=== PATIENT | male | born 1980 | race Hispanic/Latino ===

== ENCOUNTER 2021-02-12 19:35 | Emergency (ER) | payer OTHER ==
[~2021-02-12] VITALS: Ht 170.2 cm; Wt 84.8 kg
[2021-02-12] MEDS ORDERED: KEFLEX500 MG PO (20:05)
[2021-02-12] MEDS ORDERED: BACTRIM DS1 TAB PO (20:05)
[2021-02-12 20:15] VITALS: BP 154/88
== END 2021-02-12 20:15 | disposition home or self-care (01) | DRG 603 ==
LOC: ED 19:35
DX: L02.413 Cutaneous abscess of right upper limb (principal); L03.113 Cellulitis of right upper limb; B95.61 Methicillin susceptible Staphylococcus aureus infection as the cause of diseases classified elsewhere; S50.861A Insect bite (nonvenomous) of right forearm, initial encounter; W57.XXXA Bitten or stung by nonvenomous insect and other nonvenomous arthropods, initial encounter; Y93.89 Activity, other specified; Y92.74 Orchard as the place of occurrence of the external cause; Y99.0 Civilian activity done for income or pay

== ENCOUNTER 2021-02-14 20:10 | Emergency (ER) | payer OTHER ==
[~2021-02-14] VITALS: Ht 170.2 cm; Wt 80.0 kg
[~2021-02-14 20:10] MED LIST: BACTRIM DS1 TAB PO; KEFLEX500 MG PO
[2021-02-14 21:00] VITALS: BP 155/98
== END 2021-02-14 21:00 | disposition home or self-care (01) | DRG 603 ==
LOC: ED 20:10
DX: L03.113 Cellulitis of right upper limb (principal); L02.413 Cutaneous abscess of right upper limb

== ENCOUNTER 2021-07-27 19:01 | Emergency (ER) | payer SELFPAY ==
[~2021-07-27] VITALS: Ht 162.6 cm; Wt 68.0 kg
[2021-07-27 19:49] LABS: HEMATOCRIT 46.4 % (39.0-50.0); HEMOGLOBIN 15.9 g/dl (14.0-18.0); IMMATURE GRANULOCYTES 0.1 % (0.0-5.0); MEAN CELL VOLUME 89.9 fL CALC (80.0-100.0); MEAN CORPUSCULAR HGB 30.8 pG CALC (26.0-32.0); MEAN CORPUSCULAR HGB CONC 34.3 g/dL CAL (32.0-36.0); NEUT# 5.17 thou/uL (1.82-7.42); RED BLOOD COUNT 5.16 mill/uL (4.70-6.10)
[2021-07-27 20:12] LABS: ALBUMIN 4.4 g/dL (3.2-5.0); ALKALINE PHOSPHATASE 102 u/l (38-126); ANION GAP 11 (6-22 (CALC)); BILIRUBIN, TOTAL 0.5 mg/dL (0.0-1.4); BUN 10 mg/dL (9-20); BUN/CREATININE RATIO 14 (12-20 (CALC)); CARBON DIOXIDE 31 mmol/l (22-30); CHLORIDE 101 mmol/l (95-108); CREATININE 0.8 mg/dL (0.7-1.3); ETHYL ALCOHOL 0 mg/dl (0-30); GFR > 60 ML/MIN (>=60 (CALC)); GFR FOR AFR.AMER. > 60 ML/MIN (>=60 (CALC)); POTASSIUM 4.3 mmol/l (3.5-5.1); SGOT/AST 45 u/l (17-59); SODIUM 139 mmol/l (137-146); TOTAL PROTEIN 7.6 g/dL (6.3-8.2)
[2021-07-27] MEDS ORDERED: TORADOL PO (20:46)
[2021-07-27 20:55] VITALS: BP 170/94
== END 2021-07-27 20:55 | disposition home or self-care (01) | DRG 103 ==
LOC: ED 19:01
PROVIDERS: Family Medicine
DX: R51.9 Headache, unspecified (principal)